=== PATIENT | female | born 1940 | race American Indian/Alaskan Native ===

== ENCOUNTER 2018-06-25 09:59 | Emergency (ER) | payer OTHER, MEDICARE ==
[2018-06-25] MEDS ORDERED: SOLU-Medrol IV ONE (10:25)
[2018-06-25] MEDS ORDERED: PROVENTIL IH ONE ×2 (10:25→12:39)
[2018-06-25] MEDS ORDERED: ATROVENT IH ONE ×2 (10:25→12:39)
[2018-06-25] MEDS ORDERED: MAGNESIUM SULFATE 2GM/50ML 2 GM/50 ML BAG IV ONE (10:25)
[2018-06-25] MEDS ORDERED: TORADOL IV ONE (10:25)
[2018-06-25] MEDS ORDERED: NACL 0.9% 250ML 250 ML IV ONE (10:26)
--- NOTE | 2018-06-25 10:27 | Emergency Department Report ---
ED General Adult HPI - General Chief complaint: Dyspnea/Respdistress Stated complaint: STANLEY Time Seen by Provider: 06/25/18 10:16 Source: patient, RN notes reviewed, old records reviewed Mode of arrival: Ambulatory Limitations: Physical Limitation - History of Present Illness Initial comments: Patient does not have a local primary care doctor. Past medical history: Diabetes, asthma, history of travel-induced pulmonary embolism, not currently on systemic anticoagulation This is a 78-year-old female, not known to this provider previously, presents to the ER with a complaint of chest wall pain, cough, wheezing, shortness of breath. Symptoms started this morning. They're constant. Worse with physical exertion, palpation, decreased with rest. Reports she subjectively feels like asthma is acting up. sHe reports that she always gets chest wall pain with her asthma. Chest wall pain does not radiate to the back, arms or neck. There is no vomiting or diaphoresis. He was told leg pain. There is no leg swelling. No recent trips or surgeries. Patient admitted to this hospital last month for syncope, and abdominal pain, and CT scan suggested colitis. -: Gradual Location: chest Radiation: non-radiation Quality: aching Consistency: constant Improves with: other Worsens with: other Associated Symptoms: chest pain, cough, loss of appetite, malaise, shortness of breath, weakness. denies: confusion, diaphoresis, fever/chills, headaches, nausea/vomiting, rash, seizure, syncope - Related Data Home Medications Medication Instructions Recorded Confirmed Last Taken Naproxen 500 mg PO BID 05/25/18 05/25/18 05/24/18 10:00 Previous Rx's Medication Instructions Recorded Last Taken Type Budesonide/Formoterol Fumarate 10.2 gm IH Q4HR PRN #30 hfa.aer.ad 05/27/18 Unkno wn Rx [Symbicort 160-4.5 Mcg Inhaler] Gabapentin [Neurontin] 100 mg PO TID #30 capsule 05/27/18 Unknown Rx Lisinopril [Zestril] 40 mg PO DAILY #30 tablet 05/27/18 Unknown Rx Metformin HCl 500 mg PO BID #60 tablet 05/27/18 Unknown Rx levoFLOXacin [Levaquin TAB] 500 mg PO QDAY #10 tablet 05/27/18 Unknown Rx metroNIDAZOLE [Flagyl] 500 mg PO Q8HR #30 tablet 05/27/18 Unknown Rx Allergies Allergy/AdvReac Type Severity Reaction Status Date / Time No Known Allergies Allergy Verified 05/25/18 02:07 ED Review of Systems ROS: Stated complaint: STANLEY Other details as noted in HPI Constitutional: malaise. denies: fever Eyes: denies: eye discharge ENT: denies: epistaxis Respiratory: shortness of breath, wheezing Cardiovascular: chest pain Gastrointestinal: denies: vomiting Genitourinary: denies: dysuria Musculoskeletal: arthralgia Skin: denies: lesions Neurological: weakness Psychiatric: anxiety ED Past Medical Hx - Past Medical History Previous Medical History?: Yes Hx Hypertension: Yes Hx Heart Attack/AMI: No Hx Diabetes: Yes Hx Deep Vein Thrombosis: No Hx Pulmonary Embolism: Yes Hx Sickle Cell Disease: No Hx Arthritis: Yes Hx Asthma: Yes Hx COPD: No Hx Tuberculosis: No - Surgical History Past Surgical History?: Yes Hx Coronary Stent: No Hx Pacemaker: No Hx Internal Defibrillator: No Additional Surgical History: Full Hysterecomy - Social History Smoking Status: Never Smoker Substance Use Type: None - Medications Home Medications: Home Medications Medication Instructions Recorded Confirmed Last Taken Type Naproxen 500 mg PO BID 05/25/18 05/25/18 05/24/18 10:00 History Budesonide/Formoterol Fumarate 10.2 gm IH Q4HR PRN #30 hfa.aer.ad 05/27/18 U nknown Rx [Symbicort 160-4.5 Mcg Inhaler] Gabapentin [Neurontin] 100 mg PO TID #30 capsule 05/27/18 Unknown Rx Lisinopril [Zestril] 40 mg PO DAILY #30 tablet 05/27/18 Unknown Rx Metformin HCl 500 mg PO BID #60 tablet 05/27/18 Unknown Rx levoFLOXacin [Levaquin TAB] 500 mg PO QDAY #10 tablet 05/27/18 Unknown Rx metroNIDAZOLE [Flagyl] 500 mg PO Q8HR #30 tablet 05/27/18 Unknown Rx ED Physical Exam - General Limitations: No Limitations General appearance: alert, in distress - Head Head exam: Present: atraumatic, normocephalic - Eye Eye exam: Present: normal appearance, EOMI. Absent: nystagmus - ENT ENT exam: Present: normal exam, normal orophraynx, mucous membranes moist, normal external ear exam - Neck Neck exam: Present: normal inspection, full ROM. Absent: tenderness, meningismus - Respiratory Respiratory exam: Present: wheezes, rhonchi, chest wall tenderness - Cardiovascular Cardiovascular Exam: Present: normal rhythm, tachycardia, normal heart sounds. Absent: systolic murmur, diastolic murmur, rubs, gallop - GI/Abdominal GI/Abdominal exam: Present: soft. Absent: distended, tenderness, guarding, rebound, rigid, pulsatile mass - Extremities Exam Extremities exam: Present: normal inspection, full ROM, other (2+ pulses noted in the bilateral upper, lower extremities. Compartments soft. No long bony tenderness. The pelvis is stable.). Absent: joint swelling, calf tenderness - Back Exam Back exam: Present: normal inspection, full ROM. Absent: tenderness, CVA tenderness (R), paraspinal tenderness, vertebral tenderness - Neurological Exam Neurological exam: Present: alert, other (Extraocular movements intact. Tongue midline. No facial droop. Facial sensation intact to light touch in the V1, V2, V3 distribution bilaterally. 5 and 5 strength in 4 extremities.. Sensation is intact to light touch in 4 extremities.). Absent: motor sensory deficit - Psychiatric Psychiatric exam: Present: anxious - Skin Skin exam: Present: warm, dry, intact, normal color. Absent: rash ED Course Vital Signs 06/25/18 06/25/18 06/25/18 10:03 10:18 10:25 Temperature 98.2 F Pulse Rate 117 H 108 H Pulse Rate [ Anterior Bilateral Throughout] Respiratory 24 17 22 Rate Respiratory Rate [Anterior Bilateral Throughout] Blood Pressure 172/101 O2 Sat by Pulse 98 98 Oximetry 06/25/18 06/25/18 06/25/18 10:30 10:50 11:00 Temperature Pulse Rate 104 H Pulse Rate [ 104 H 102 H Anterior Bilateral Throughout] Respiratory 20 Rate Respiratory 18 20 Rate [Anterior Bilateral Throughout] Blood Pressure 169/93 O2 Sat by Pulse 100 Oximetry 06/25/18 06/25/18 12:00 14:00 Temperature Pulse Rate 107 H Pulse Rate [ 100 H Anterior Bilateral Throughout] Respiratory 24 Rate Respiratory 16 Rate [Anterior Bilateral Throughout] Blood Pressure 120/65 O2 Sat by Pulse 92 Oximetry - Reevaluation(s) Reevaluation #1: 06/25/18 11:23 Differential diagnosis, including without limited to: Costochondritis, bronchitis, asthma exacerbation, pneumonia, pericarditis, myocarditis, acute coronary syndrome, pulmonary embolus Assessment and plan: 78-year-old female with reproducible chest wall pain, cough, wheezing, shortness of breath, history of asthma, most likely asthma exacerbation with superimposed costochondritis. Troponin negative 1, therefore, myocarditis, pericarditis unlikely, EKG appears to be morphologically unchanged from prior. Given her recent hospitalization within the past month or so, I find the patient to be low pretest probability for pulmonary embolus, but given her history, a d- dimer sent, comes back elevated, and a CT scan of the chest is ordered. We will treat the patient's pain with ketorolac, and treat her wheezing with albuterol, Atrovent, steroids, magnesium. CT scan of the chest interpretation is pending, and repeat troponin, repeat EKG also pending. Reevaluation #2: 06/25/18 12:40 Patient reassessed. Still wheezing. Still short of breath. EKG #[address] scan of the chest pending. Reevaluation #3: 06/25/18 13:21 Patient is still wheezing and still having shortness of breath. Exercise tolerance is severely limited. Patient will be admitted to the medical service for refractory asthma exacerbation. CT scan of the chest interpretation is pending at this time. Hospital physician, Dr. Lyle, has accepted the patient to the medical service. Reevaluation #4: 06/25/18 14:56 CT scan of the chest is negative for acute disease ED Medical Decision Making - Lab Data Result diagrams: 06/25/18 10:18 06/25/18 10:25 Vital Signs 06/25/18 06/25/18 06/25/18 10:03 10:18 10:25 Temperature 98.2 F Pulse Rate 117 H 108 H Pulse Rate [ Anterior Bilateral Throughout] Respiratory 24 17 22 Rate Respiratory Rate [Anterior Bilateral Throughout] Blood Pressure 172/101 O2 Sat by Pulse 98 98 Oximetry 06/25/18 06/25/18 10:30 10:50 Temperature Pulse Rate Pulse Rate [ 104 H 102 H Anterior Bilateral Throughout] Respiratory Rate Respiratory 18 20 Rate [Anterior Bilateral Throughout] Blood Pressure O2 Sat by Pulse Oximetry Lab Results 06/25/18 06/25/18 06/25/18 Range/Units 10:18 10:25 10:25 WBC 8.6 (4.5-11.0) K/mm3 RBC 4.32 (3.65-5.03) M/mm3 Hgb 11.9 (10.1-14.3) gm/dl Hct 36.7 (30.3-42.9) % MCV 85 (79-97) fl MCH 28 (28-32) pg MCHC 32 (30-34) % RDW 13.6 (13.2-15.2) % Plt Count 229 (140-440) K/mm3 Lymph % (Auto) 22.7 (13.4-35.0) % [place] % (Auto) 8.4 H (0.0-7.3) % Eos % (Auto) 2.4 (0.0-4.3) % Baso % (Auto) 0.7 (0.0-1.8) % Lymph # 1.9 (1.2-5.4) K/mm3 [place] # 0.7 (0.0-0.8) K/mm3 Eos # 0.2 (0.0-0.4) K/mm3 Baso # 0.1 (0.0-0.1) K/mm3 Seg Neutrophils % 65.8 (40.0-70.0) % Seg Neutrophils # 5.6 (1.8-7.7) K/mm3 PT (12.2-14.9) Sec. INR (0.87-1.13) APTT (24.2-36.6) Sec. D-Dimer (0-234) ng/mlDDU Sodium 139 (137-145) mmol/L Potassium 4.2 (3.6-5.0) mmol/L Chloride 103.1 (98-107) mmol/L Carbon Dioxide 26 (22-30) mmol/L Anion Gap 14 mmol/L BUN 14 (7-17) mg/dL Creatinine 0.7 (0.7-1.2) mg/dL Estimated GFR > 60 ml/min BUN/Creatinine Ratio 20 % Glucose 163 H (65-100) mg/dL Calcium 9.3 (8.4-10.2) mg/dL Total Creatine Kinase (30-135) units/L Troponin T < 0.010 (0.00-0.029) ng/mL 06/25/18 06/25/18 Range/Units 10:29 10:29 WBC (4.5-11.0) K/mm3 RBC (3.65-5.03) M/mm3 Hgb (10.1-14.3) gm/dl Hct (30.3-42.9) % MCV (79-97) fl MCH (28-32) pg MCHC (30-34) % RDW (13.2-15.2) % Plt Count (140-440) K/mm3 Lymph % (Auto) (13.4-35.0) % [place] % (Auto) (0.0-7.3) % Eos % (Auto) (0.0-4.3) % Baso % (Auto) (0.0-1.8) % Lymph # (1.2-5.4) K/mm3 [place] # (0.0-0.8) K/mm3 Eos # (0.0-0.4) K/mm3 Baso # (0.0-0.1) K/mm3 Seg Neutrophils % (40.0-70.0) % Seg Neutrophils # (1.8-7.7) K/mm3 PT 13.2 (12.2-14.9) Sec. INR 0.96 (0.87-1.13) APTT 24.6 (24.2-36.6) Sec. D-Dimer 529.07 H (0-234) ng/mlDDU Sodium (137-145) mmol/L Potassium (3.6-5.0) mmol/L Chloride (98-107) mmol/L Carbon Dioxide (22-30) mmol/L Anion Gap mmol/L BUN (7-17) mg/dL Creatinine (0.7-1.2) mg/dL Estimated GFR ml/min BUN/Creatinine Ratio % Glucose (65-100) mg/dL Calcium (8.4-10.2) mg/dL Total Creatine Kinase 79 (30-135) units/L Troponin T (0.00-0.029) ng/mL - EKG Data -: EKG Interpreted by Mi EKG shows normal: sinus rhythm Rate: tachycardia - EKG Data 06/25/18 11:22 Tachycardia, 108 bpm, normal axis, QTC prolonged, left ventricular hypertrophy, borderline atrial enlargement, not consistent with ST elevation myocardial infarction, appears to be grossly unchanged from prior EKG from 05/24/2018 - Radiology Data Radiology results: image reviewed interpreted by me: X-ray the chest, 1 view, interpreted by his provider, no acute disease Critical care attestation.: If time is entered above; I have spent that time in minutes in the direct care of this critically ill patient, excluding procedure time. ED Disposition Clinical Impression: Asthma exacerbation Disposition: OP ADMIT IP TO THIS HOSP Is pt being admited?: Yes Does the pt Need Aspirin: Yes Condition: Good Referrals: PRIMARY CARE, [Primary Care Provider] - 3-5 Days
[2018-06-25 10:32] LABS: Basophils # (Auto) 0.1 K/mm3 (0.0-0.1); Basophils % (Auto) 0.7 % (0.0-1.8); Eosinophils # (Auto) 0.2 K/mm3 (0.0-0.4); Eosinophils % (Auto) 2.4 % (0.0-4.3); Hematocrit 36.7 % (30.3-42.9); Hemoglobin 11.9 gm/dl (10.1-14.3); Lymphocytes # (Auto) 1.9 K/mm3 (1.2-5.4); Lymphocytes % (Auto) 22.7 % (13.4-35.0); Mean Corpuscular HGB Conc 32 % (30-34); Mean Corpuscular Volume 85 fl (79-97); Monocytes # (Auto) 0.7 K/mm3 (0.0-0.8); Monocytes % (Auto) 8.4 % (0.0-7.3); Platelet Count 229 K/mm3 (140-440); Red Blood Count 4.32 M/mm3 (3.65-5.03); Red Cell Distribution Width 13.6 % (13.2-15.2)
[2018-06-25 10:50] LABS: INR 0.96 (0.87-1.13)
[2018-06-25 10:51] LABS: Partial Thromboplastin Time 24.6 Sec. (24.2-36.6)
[2018-06-25 10:57] LABS: BUN/Creatinine Ratio 20; Blood Urea Nitrogen 14 mg/dL (7-17); Calcium 9.3 mg/dL (8.4-10.2); Hemolysis Index 30
--- NOTE | 2018-06-25 11:38 | XRay Report ---
FINAL REPORT EXAM: XR CHEST 1V AP HISTORY: Shortness of breath TECHNIQUE: Frontal chest radiograph. PRIORS: 05/24/2018. FINDINGS: Unchanged aortic calculi. The cardiomediastinal silhouette is normal. No focal consolidation. No pleural effusion. No pneumothorax. No acute osseous abnormality. IMPRESSION: No acute cardiopulmonary process.
--- NOTE | 2018-06-25 14:02 | Cat Scan Report ---
FINAL REPORT EXAM: CT ANGIO CHEST HISTORY: chest pain, shortness of breath, history of PE about a month ago. TECHNIQUE: CT angiography of the chest was performed. IV contrast was administered. Axial images and coronal and sagittal reformatted images were obtained. PRIORS: 05/25/2018 FINDINGS: There are coronary artery atherosclerotic calcifications. There is enlargement of the left thyroid lobe extending into the superior mediastinum. This is unchan ged. There is no other mediastinal or hilar mass seen.. There is no aortic dissection seen. There are no filling defects seen within the pulmonary arterial circulation to suggest pulmonary embo lism. There are no pleural effusions seen. The lungs are clear. There is no pneumothorax seen. IMPRESSION: There is no pulmonary embolism or aortic dissection seen. Unchanged left thyroid enlargement extending substernally.
--- NOTE | 2018-06-25 16:46 | Consultation ---
Medications and Allergies Allergies Allergy/AdvReac Type Severity Reaction Status Date / Time No Known Allergies Allergy Verified 05/25/18 02:07 Home Medications Medication Instructions Recorded Confirmed Last Taken Type Naproxen 500 mg PO BID 05/25/18 05/25/18 05/24/18 10:00 History Budesonide/Formoterol Fumarate 10.2 gm IH Q4HR PRN #30 hfa.aer.ad 05/27/18 Unknown Rx [Symbicort 160-4.5 Mcg Inhaler] Gabapentin [Neurontin] 100 mg PO TID #30 capsule 05/27/18 Unknown Rx Lisinopril [Zestril] 40 mg PO DAILY #30 tablet 05/27/18 Unknown Rx Metformin HCl 500 mg PO BID #60 tablet 05/27/18 Unknown Rx levoFLOXacin [Levaquin TAB] 500 mg PO QDAY #10 tablet 05/27/18 Unknown Rx metroNIDAZOLE [Flagyl] 500 mg PO Q8HR #30 tablet 05/27/18 Unknown Rx Albuterol Sulfate [Albuterol 0.63% 0.63 mg IH TID PRN #1 box 06/25/18 Unknown Rx NEBS] Azithromycin 250 mg PO DAILY #6 tablet 06/25/18 Unknown Rx Ipratropium [Atrovent NEB] 0.5 mg IH Q8HRT #1 box 06/25/18 Unknown Rx Nebulizer and Compressor [[place] 1 each MC TID PRN #1 each 06/25/18 Unknown Rx Choice Nebulizer] Prednisone [predniSONE 10 mg 10 mg PO .TAPER #1 tab.ds.pk 06/25/18 Unknown Rx (6-Day Pack, 21 Tabs)] Exam - Constitutional Vitals: Temp Pulse Resp BP Pulse Ox 98.2 F 101 H 21 148/81 95 06/25/18 10:03 06/25/18 15:00 06/25/18 15:00 06/25/18 15:00 06/25/18 15:00 Results - Labs CBC & Chem 7: 06/25/18 10:18 06/25/18 10:25 Labs: Abnormal lab results 06/25/18 06/25/18 06/25/18 Range/Units 10:18 10:25 10:29 [place] % (Auto) 8.4 H (0.0-7.3) % D-Dimer 529.07 H (0-234) ng/mlDDU Glucose 163 H (65-100) mg/dL
[2018-06-25] MEDS ORDERED: PROVENTIL IH PRN (16:53)
[2018-06-25] MEDS ORDERED: TYLENOL PO PRN (16:53)
[2018-06-25] MEDS ORDERED: SODIUM CHLORIDE FLUSH SYRINGE 10 ML IV PRN (16:53)
[2018-06-25] MEDS ORDERED: ZOFRAN IV PRN (16:53)
[2018-06-25 19:29] VITALS: BP 162/88
[2018-06-25] MEDS ORDERED: NEURONTIN PO SCH (20:00)
[2018-06-25] MEDS ORDERED: SODIUM CHLORIDE FLUSH SYRINGE 10 ML IV SCH (22:00)
[2018-06-25] MEDS ORDERED: NAPROSYN PO SCH (22:00)
[2018-06-26] MEDS ORDERED: ZESTRIL PO SCH (10:00)
--- NOTE | 2018-07-31 10:55 | Event Note ---
Date: 06/25/18 78 YO Female presents to ED for evaluation. Pt seen and evaluated in ED and found to have atypical chest pain. Pt treated IAW chest pain protocol. Serial cardiac enzymes, ekg, and telemetry were negative for acute ischemia. D dimer was elevated, but CTA chest was negative for PE. Pt symptoms resolved with supportive care. Pt medically optimized and back to usual state of health. Pt discharged home and instructed to f/u pcp 1wk, cardiology prn. and to maintain blood pressure log 3x [place]. Physical Exam GENERAL: The patient is well-developed well-nourished female lying on stretcher not appearing to be in acute distress. [] HEENT: Normocephalic. Atraumatic. Extraocular motions are intact. Patient has moist mucous membranes. NECK: Supple. Trachea midline CHEST/LUNGS: Clear to auscultation. There is no respiratory distress noted. HEART/CARDIOVASCULAR: Regular. There is no tachycardia. There is no gallop rub or murmur. ABDOMEN: Abdomen is soft, nontender. Patient has normal bowel sounds. There is no abdominal distention. SKIN: There is no rash. There is no peripheral edema appreciated. There is no diaphoresis. NEURO: The patient is awake, alert, and oriented. The patient is cooperative. The patient has normal speech MUSCULOSKELETAL: There is no evidence of acute injury.
== END 2018-06-25 19:28 | disposition admitted as inpatient to this hospital (09) ==
LOC: ED 09:59
DX: J45.901 Unspecified asthma with (acute) exacerbation (principal); I10 Essential (primary) hypertension; E11.9 Type 2 diabetes mellitus without complications; J45.909 Unspecified asthma, uncomplicated
CPT/HCPCS: 36415; 71045; 71275; 80048; 82550; 82803; 82962; 84484; 85025; 85379; 85610; 85730; 93005; 93010; 94640; 96374; 96375; 99285; J1885; J2930; J3475; J7050; Q9967

== ENCOUNTER 2018-12-10 12:58 | Emergency (ER) | payer OTHER, MEDICARE ==
--- NOTE | 2018-12-10 13:20 | Event Note ---
ED Screening Note Date of service: 12/10/18 Time: 13:19 ED Screening Note: 78 y/o female with multiple complaints. This initial assessment/diagnostic orders/clinical plan/treatment(s) is/are subject to change based on patients health status, clinical progression and re- assessment by fellow clinical providers in the ED. Further treatment and workup at subsequent clinical providers discretion. Patient/guardian urged not to elope from the ED as their condition may be serious if not clinically assessed and managed. Initial orders include:
[2018-12-10 15:06] VITALS: BP 123/72
--- NOTE | 2018-12-10 16:28 | Emergency Department Report ---
<TYSHAWN JUSTICE - Last Filed: 12/10/18 18:03> ED Fall HPI - General Chief Complaint: Earache Stated Complaint: EAR/BACK PAIN Time Seen by Provider: 12/10/18 13:19 - Related Data Home Medications Medication Instructions Recorded Confirmed Last Taken Naproxen 500 mg PO BID 05/25/18 05/25/18 05/24/18 10:00 Previous Rx's Medication Instructions Recorded Last Taken Type Budesonide/Formoterol Fumarate 10.2 gm IH Q4HR PRN #30 hfa.aer.ad 05/27/18 Unknown Rx [Symbicort 160-4.5 Mcg Inhaler] Gabapentin [Neurontin] 100 mg PO TID #30 capsule 05/27/18 Unknown Rx Lisinopril [Zestril] 40 mg PO DAILY #30 tablet 05/27/18 Unknown Rx Metformin HCl 500 mg PO BID #60 tablet 05/27/18 Unknown Rx levoFLOXacin [Levaquin TAB] 500 mg PO QDAY #10 tablet 05/27/18 Unknown Rx metroNIDAZOLE [Flagyl] 500 mg PO Q8HR #30 tablet 05/27/18 Unknown Rx Albuterol Sulfate [Albuterol 0.63% 0.63 mg IH TID PRN #1 box 06/25/18 Unknown Rx NEBS] Azithromycin 250 mg PO DAILY #6 tablet 06/25/18 Unknown Rx Ipratropium [Atrovent NEB] 0.5 mg IH Q8HRT #1 box 06/25/18 Unknown Rx Nebulizer and Compressor [[place] 1 each MC TID PRN #1 each 06/25/18 Unknown Rx Choice Nebulizer] Prednisone [predniSONE 10 mg 10 mg PO .TAPER #1 tab.ds.pk 06/25/18 Unknown Rx (6-Day Pack, 21 Tabs)] Acetaminophen/Codeine [Tylenol 1 tab PO Q6H PRN #12 tab 12/10/18 Unknown Rx /Codeine # 3 tab] Allergies Allergy/AdvReac Type Severity Reaction Status Date / Time No Known Allergies Allergy Verified 05/25/18 02:07 ED Past Medical Hx - Medications Home Medications: Home Medications Medication Instructions Recorded Confirmed Last Taken Type Naproxen 500 mg PO BID 05/25/18 05/25/18 05/24/18 10:00 History Budesonide/Formoterol Fumarate 10.2 gm IH Q4HR PRN #30 hfa.aer.ad 05/27/18 Unknown Rx [Symbicort 160-4.5 Mcg Inhaler] Gabapentin [Neurontin] 100 mg PO TID #30 capsule 05/27/18 Unknown Rx Lisinopril [Zestril] 40 mg PO DAILY #30 tablet 05/27/18 Unknown Rx Metformin HCl 500 mg PO BID #60 tablet 05/27/18 Unknown Rx levoFLOXacin [Levaquin TAB] 500 mg PO QDAY #10 tablet 05/27/18 Unknown Rx metroNIDAZOLE [Flagyl] 500 mg PO Q8HR #30 tablet 05/27/18 Unknown Rx Albuterol Sulfate [Albuterol 0.63% 0.63 mg IH TID PRN #1 box 06/25/18 Unknown Rx NEBS] Azithromycin 250 mg PO DAILY #6 tablet 06/25/18 Unknown Rx Ipratropium [Atrovent NEB] 0.5 mg IH Q8HRT #1 box 06/25/18 Unknown Rx Nebulizer and Compressor [[place] 1 each MC TID PRN #1 each 06/25/18 Unknown Rx Choice Nebulizer] Prednisone [predniSONE 10 mg 10 mg PO .TAPER #1 tab.ds.pk 06/25/18 Unknown Rx (6-Day Pack, 21 Tabs)] Acetaminophen/Codeine [Tylenol 1 tab PO Q6H PRN #12 tab 12/10/18 Unknown Rx /Codeine # 3 tab] ED Medical Decision Making - Lab Data Result diagrams: 12/10/18 16:31 12/10/18 16:31 - Medical Decision Making Patient was originally seen by Prashanth Salinas and was signed out to me for pending CT scans and x-rays. CT scans and x-ray has been dictated by radiologist and all within normal limits with no acute fractures, dislocation or abnormalities. Patient is notified of the results with no questions noted by the patient. Patient will be discharged with Tylenol with Codeine for pain and was instructed not to operate any machinery while taking this due to possible drowsiness. Patient was instructed to Follow-up with a primary care doctor in 3-5 days or if symptoms worsen and continue return to emergency room as soon as possible. At time of discharge, the patient does not seem toxic or ill in appearance. No acute signs of distress noted. Patient agrees to discharge treatment plan of care. No further questions noted by the patient. ED Disposition Clinical Impression: Fall Qualifiers: Encounter type: initial encounter Qualified Code(s): W19.XXXA - Unspecified fall, initial encounter Contusion Qualifiers: Encounter type: initial encounter Contusion area: head Contusion of head detail: unspecified part of head Qualified Code(s): S00.93XA - Contusion of unspecified part of head, initial encounter Disposition: - TO HOME OR SELFCARE Is pt being admited?: No Does the pt Need Aspirin: No Condition: Stable Instructions: Acetaminophen/Codeine (By mouth), Fall Prevention for Older Adults (ED) Additional Instructions: Follow-up with your primary care doctor in 3-5 days or if symptoms worsen such as bladder or bowel stability, chest pain, short of breath, numbness or tingling sensation in extremities, headache, dizziness, visual changes, nausea vomiting, or abdominal pain, return back to emergency room as was possible. Do not operate any machinery while taking Tylenol with codeine as this may cause drowsiness. Prescriptions: Acetaminophen/Codeine [Tylenol /Codeine # 3 tab] 1 tab PO Q6H PRN #12 tab PRN Reason: Pain , Severe (7-10) Referrals: [facility] MD CATALINO [Referring] - 3-5 Days PRIMARY CAREMD [Referring] - 3-5 Days ELSIE MAYA MD [Staff Physician] - 3-5 Days [facility] [Outside] - 3-5 Days [facility] [Outside] - 3-5 Days Forms: Accompanied Note <PAULA WISE P - Last Filed: 12/23/18 11:50> ED Fall HPI - General Source: patient Mode of arrival: Wheelchair - History of Present Illness Initial Comments: Patient reports a ground level fall onto her carpet at approximately noon. Denies LOC. Denies drugs/alcohol. Reports since the fall she has been ambulatory. Reports some neck pain and back pain and left knee pain since she fell. Complaint: fall -: Gradual, hour(s) Fall From: standing When Fall Occurred: 4-[address] [employer] Fall Occurred: home Loss of Consciousness: none Prolonged Down Time?: no Symptoms Prior to Fall: none Location: head, neck, back, other (left knee) Location - Extremities: Left: Shoulder, Knee Severity: mild Severity scale (0 -10): 1 Quality: aching Context: tripped/slipped Associated Symptoms: denies: headache, numbness, weakness, chest paint, shortness of breath, abdominal pain, hematuria, unable to walk, lightheaded, vertigo, confusion ED Review of Systems ROS: Stated complaint: EAR/BACK PAIN Other details as noted in HPI Other: GENERAL: No weight change, fatigue, weakness, fever, chills, or night sweats SKIN: No changes in skin or hair, no itching, no rashes, no jaundice HEAD: No trauma, headache, or visual changes EYES: No blurriness, tearing, itching, acute visual loss, conjunctival discoloration, or scleral icterus EARS: No hearing loss, tinnitus, vertigo, or earache NOSE: No rhinorrhea, stuffiness, sneezing, itching, or epistaxis MOUTH: No bleeding gums, hoarseness, sore throat, or swelling CARDIAC: No new murmur, chest pain, palpitations, dyspnea on exertion, orthopnea, PND, or edema RESPIRATORY: No shortness of breath, wheeze, cough, sputum production, hemoptysis, pneumonia, asthma, bronchitis, or emphysema GI: No change in appetite, nausea, vomiting, dysphagia, change in bowel freque ncy, diarrhea, constipation, bleeding, hematemesis, melena, hematochezia, or abdominal pain URINARY: No frequency, urgency, polyuria, dysuria, hematuria, or incontinence MUSCULOSKELETAL: Back pain and neck pain s/p fall. No muscle weakness, joint stiffness, decrease in range of motion, redness, swelling NEUROLOGIC: No loss of sensation, numbness, tingling, tremors, weakness, paralysis, seizures HEMATOLOGIC: No anemia, easy bruising, bleeding, petechiae, or purpura ENDOCRINE: No hot or cold intolerance, sweating, polyuria, polydipsia or, polyphagia no thyroid problems PSYCHIATRIC: No change in mood, no anxiety, no depression ED Past Medical Hx - Past Medical History Hx Hypertension: Yes Hx Heart Attack/AMI: No Hx Diabetes: Yes Hx Deep Vein Thrombosis: No Hx Pulmonary Embolism: Yes Hx Sickle Cell Disease: No Hx Arthritis: Yes Hx Asthma: Yes Hx COPD: No Hx Tuberculosis: No - Surgical History Hx Coronary Stent: No Hx Pacemaker: No Hx Internal Defibrillator: No Additional Surgical History: Full Hysterecomy - Social History Smoking Status: Never Smoker Substance Use Type: None ED Physical Exam - General Limitations: No Limitations - Other Other exam information: GENERAL: Patient in no acute distress HEAD: Normocephalic, atraumatic EYES: PERRLA, EOM intact, no scleral icterus, no papilledema, no conjunctival hemorrhage, visual shahid and acuity wnl, NOSE: No tenderness, discharge, sinus tenderness MOUTH: No erythema, bleeding, exudate HEART: Regular rate and rhythm, no murmur, S1-S2 are auscultated, pulses are symmetric LUNGS: No wheezing, rales, rhonchi, bilateral breath sounds ABDOMEN: Normal bowel sounds, no tenderness, no rebound, no guarding, no masses, no CVA tenderness MUSCULOSKELETAL: Normal joint range of motion, no redness, no swelling, no tenderness NEUROLOGIC: GCS 15, Alert and Oriented x3, Cranial nerves intact, normal sensation, normal strength, no cerebellar deficit, NIHSS 0 PSYCHIATRIC: No homicidal or suicidal ideation, no anxiety, no depression, no hallucinations SKIN: Skin is warm and dry, no wounds, no rashes EARS: No tenderness, discharge, tympanic membrane wnl ED Course Vital Signs 12/10/18 12/10/18 13:17 15:05 Temperature 98.8 F Pulse Rate 96 H 93 H Respiratory 16 18 Rate Blood Pressure 174/90 Blood Pressure 123/72 [Right] O2 Sat by Pulse 99 94 Oximetry ED Medical Decision Making - Lab Data Result diagrams: 12/10/18 16:31 12/10/18 16:31 - Medical Decision Making At 1659 patient signed out to Tyshawn NOBLE for further evaluation. Plan if ER evaluation wnl, patient ok for discharge with outpatient follow up. Critical care attestation.: If time is entered above; I have spent that time in minutes in the direct care of this critically ill patient, excluding procedure time.
[2018-12-10 17:08] LABS: Basophils % (Auto) 0.6 % (0.0-1.8); Eosinophils # (Auto) 0.3 K/mm3 (0.0-0.4); Eosinophils % (Auto) 4.2 % (0.0-4.3); Hemoglobin 12.3 gm/dl (10.1-14.3); Lymphocytes # (Auto) 1.8 K/mm3 (1.2-5.4); Lymphocytes % (Auto) 26.8 % (13.4-35.0); Mean Corpuscular HGB Conc 32 % (30-34); Mean Corpuscular Volume 85 fl (79-97); Monocytes # (Auto) 0.6 K/mm3 (0.0-0.8); Monocytes % (Auto) 9.1 % (0.0-7.3); Platelet Count 236 K/mm3 (140-440); Red Blood Count 4.47 M/mm3 (3.65-5.03); Red Cell Distribution Width 14.5 % (13.2-15.2)
--- NOTE | 2018-12-10 17:08 | Cat Scan Report ---
PROCEDURE: CT HEAD/BRAIN WO CON TECHNIQUE: Computerized tomography of the head was performed without contrast material. CT DOSE LENGTH PRODUCT: 1035.5 mGycm HISTORY: fall . Pain. COMPARISONS: Prior CT scan of the brain 05/25/2018 . FINDINGS: Brain: There is no evidence of intracranial hemorrhage. No parenchymal hemorrhage is seen. No mass lesions or mass effect is identified. No abnormal extra-axial fluid collections or masses are seen. Nonspecific mineralization of the basal ganglia are visualized. There is some decreased density seen in the periventricular white matter without mass effect. This i s fairly symmetric and does not exhibit any mass effect consistent with gliosis probably on the basis of microvascular disease or white matter changes of aging. Ventricles: The ventricles are normal size and are midline.. Bone Windows: No evidence of fracture. Paranasal sinuses: Clear. Mastoid air cells: Clear. IMPRESSION: No acute abnormalities are seen. No evidence of intracranial hemorrhage or skull fracture. Minimal gliosis is suspected.. This document is electronically signed by Brady Garcia MD., December 10 2018 05:06:56 PM ET
[2018-12-10 17:20] LABS: INR 1.03 (0.87-1.13)
[2018-12-10 17:22] LABS: Partial Thromboplastin Time 28.1 Sec. (24.2-36.6)
[2018-12-10] MEDS ORDERED: ROBAXIN PO ONE (17:26)
--- NOTE | 2018-12-10 17:28 | Cat Scan Report ---
PROCEDURE: CT CERVICAL SPINE WO CON TECHNIQUE: Computerized tomography of the cervical spine was performed from the skull base to T1 wit hout contrast material. HISTORY: Fall . Pain. COMPARISONS: None . FINDINGS: No fracture is identified. There is approximately 2 mm anterior subluxation C4 in relation to C5 whic h appears degenerative. There is moderate facet arthritis present bilaterally. Prevertebral soft tiss ues appear normal. Posterior elements appear intact. Mild diffuse disc space narrowing seen throughout the cervical spine. Small posterior osteophytic spu rs are present at C4-5, C5-6 C6-7 disc spaces. No focal disc herniation is visualized. The posterior osteophytic spurs are causing impressions on the anterior epidural space without definite cord compre ssion or spinal stenosis. Patient's head is tilted to the right. This may be due to torticollis. Calcifications are seen in the perez of the carotid arteries indicating atherosclerotic disease. There is a large heterogeneous dense nodule in the left lobe of the thyroid gland with a dense centra l calcification. The nodule measures 4.0 x 3.2 cm. Impression: No fracture is visualized. Degenerative disc disease and facet arthritis is present as described. Minimal anterior subluxation C4 in relation to C5 appears degenerative. Atherosclerosis carotid arteries. Patient's head is tilted to the right suggesting torticollis. Dominant nodule with coarse central calcification left lobe of the thyroid gland. Correlation with ph ysical exam is recommended. Follow-up thyroid ultrasound to recharacterize this mass may be indicated . This document is electronically signed by Brady Garcia MD., December 10 2018 05:26:11 PM ET
[2018-12-10 17:41] LABS: Alanine Aminotransferase 11 units/L (7-56); Albumin 3.9 g/dL (3.9-5); BUN/Creatinine Ratio 24; Blood Urea Nitrogen 17 mg/dL (7-17); Calcium 9.2 mg/dL (8.4-10.2); Hemolysis Index 7
[2018-12-10 17:42] LABS: Bacteria,Urine 1+ /HPF (Negative); Bilirubin,Urine NEG (Negative); Blood,Urine LG (Negative); Color,Urine Yellow (Yellow); Mucus,Urine FEW /HPF; Protein,Urine <15 mg/dL mg/dL (Negative); Urobilinogen,Urine < 2.0 mg/dL (<2.0)
--- NOTE | 2018-12-10 17:45 | XRay Report ---
PROCEDURE: XR CHEST ROUTINE 2V TECHNIQUE: PA and lateral chest radiographs were obtained. HISTORY: Fall COMPARISONS: 06/25/2018. FINDINGS: Heart: Normal. Mediastinum/Vessels: Normal. Lungs/Pleural space: No infiltrate, effusion, or pneumothorax. Bony thorax: Multilevel thoracic spine degenerative disc changes. IMPRESSION: No radiographic evidence of acute abnormality. This document is electronically signed by Marga Ambrosio MD., December 10 2018 05:43:03 PM ET
--- NOTE | 2018-12-10 17:50 | XRay Report ---
PROCEDURE: XR PELVIS 1-2V TECHNIQUE: AP view of the pelvis HISTORY: fall COMPARISONS: None . FINDINGS: No evidence for acute fracture or dislocation is seen. Joint spaces are maintained. Sacroiliac joints are normal. The soft tissues are unremarkable. Bony mineralization is normal. IMPRESSION: No acute soft tissue or bony abnormality noted in pelvis. This document is electronically signed by Kendal Barnes MD., December 10 2018 05:48:43 PM ET
--- NOTE | 2018-12-10 17:53 | XRay Report ---
PROCEDURE: XR SPINE LUMBOSACRAL 2-3V TECHNIQUE: Lumbar spine radiographs, AP, lateral, and coned-down views. HISTORY: trauma COMPARISONS: None . FINDINGS: Alignment: There is a mild, grade 1, anterolisthesis of L4 on L5 . Vertebral body heights/Disk spaces: There is moderate narrowing of the L3-L4, L4-L5, and L5-S1 disc basis. . Fracture(s): None . Facets: Facet joint degenerative changes are noted in the left at L4-L5 . Bone mineralization: Normal . Vasculature: Mild calcification of aorta is seen. Other: Numerous rounded calcifications are noted to the left of L2-L3. These may be associated with t he left kidney. IMPRESSION: 1. No acute fracture 2. Degenerative disc changes from L3 through S1 3. Anterolisthesis of L4 on L5 4. Multiple calcifications to the left of L2-L3 are noted, probably left renal calculi This document is electronically signed by Kendal Barnes MD., December 10 2018 05:51:25 PM ET
--- NOTE | 2018-12-10 17:54 | XRay Report ---
PROCEDURE: XR KNEE 3V LT TECHNIQUE: AP, oblique, and lateral views of the left knee HISTORY: trauma COMPARISONS: None . FINDINGS: No acute fracture or dislocation is seen. The soft tissues demonstrate a small suprapatellar joint ef fusion. Vascular calcifications posteriorly are noted. The bony mineralization is normal. There is moderate narrowing of the medial, lateral, and patellofemoral joints. Large spurs off the horan perior patellofemoral joint, inferior patella, and medial and lateral joint spaces is noted. IMPRESSION: No acute bony abnormality of the left knee. Joint effusion. Tricompartmental osteoarthritis This document is electronically signed by Kendal Barnes MD., December 10 2018 05:53:08 PM ET
== END 2018-12-10 18:35 | disposition home or self-care (01) ==
LOC: ED 12:58
DX: S00.93XA Contusion of unspecified part of head, initial encounter (principal); M54.2 Cervicalgia; M54.9 Dorsalgia, unspecified; M25.562 Pain in left knee; W01.0XXA Fall on same level from slipping, tripping and stumbling without subsequent striking against object, initial encounter; Y93.89 Activity, other specified; Y92.009 Unspecified place in unspecified non-institutional (private) residence as the place of occurrence of the external cause; Y99.8 Other external cause status
CPT/HCPCS: 36415; 70450; 71046; 72100; 72125; 72170; 80053; 81001; 82550; 84484; 85025; 85610; 85730; 87086